=== PATIENT | female | born 1960 | race Caucasian/White ===

== ENCOUNTER 2017-01-27 14:24 | Emergency (ER) | payer BC ==
[2017-01-27 15:23] VITALS: BP 112/87
--- NOTE | 2017-01-27 15:28 | UC ---
Respiratory Complaint HPI - HPI Summary HPI Summary: 56 yo female with onset of runny nose/itchy eyes and sneezing 5 days ago after being in a room with 5 dogs Has progressed to cough which is productive and wheezing No f/c no SOB hx used MDIs with bronchitis in the past - History of Current Complaint Stated Complaint: COUGH,EAR PAIN,CONGESTION Time Seen by Provider: 01/27/17 15:21 Hx Obtained From: Patient Hx Last Menstrual Period: 2003 Onset/Duration: Gradual Onset, Lasting Days Timing: Constant Severity Initially: Mild Severity Currently: Moderate Pain Intensity: 4 Pain Scale Used: 0-10 Numeric Character: Cough: Nonproductive Aggravating Factors: Nothing Alleviating Factors: Nothing Associated Signs And Symptoms: Negative: Dyspnea, Fever, Chills, Pleuritic Chest Pain, Wheezing, Hemoptysis, Dizziness, Calf Pain, Calf Swelling, Edema, URI, Nasal Congestion, Hoarseness, Sinus Discomfort - Risk Factors Pulmonary Embolism Risk Factors: Negative Cardiac Risk Factors: Negative Pseudomonas Risk Factors: Negative Tuberculosis Risk Factors: Negative - Allergies/Home Medications Allergies/Adverse Reactions: Allergies Allergy/AdvReac Type Severity Reaction Status Date / Time Metronidazole [From Flagyl] Allergy Intermediate Rash Verified 01/27/17 15:08 Home Medications: Home Medications Naproxen Sodium [Naproxen Sodium 220 mg cap] 220 mg PO PRN 01/27/17 [History] Phenylephrine-Chlorpheniramine [Cold Head Congestion Nigh] 1 tab PO PRN [History] PMH/Surg Hx/FS Hx/Imm Hx Previously Healthy: Yes Endocrine History Of: Denies: Diabetes Cardiovascular History Of: Denies: Cardiac Disorders Respiratory History Of: Reports: COPD - Surgical History Surgical History: Yes Surgery Procedure, Year, and Place: 3 hand surgery & 2 ectopic pregnancies & 3 breast biopsies - Family History Known Family History: Positive: Hypertension, Other - mother with diverticulitis - Social History Alcohol Use: Occasionally Substance Use Type: None Smoking Status (MU): Heavy Every Day Tobacco Smoker Type: Cigarettes Amount Used/How Often: 1 PPD Length of Time of Smoking/Using Tobacco: 40 Years Have You Smoked in the Last Year: Yes Household Exposure Type: Cigarettes - Immunization History Most Recent Influenza Vaccination: NO Review of Systems Constitutional: Negative Skin: Negative Eyes: Negative ENT: Nasal Discharge Respiratory: Cough Cardiovascular: Negative Gastrointestinal: Negative Genitourinary: Negative Motor: Negative Neurovascular: Negative Musculoskeletal: Negative Neurological: Negative Psychological: Negative All Other Systems Reviewed And Are Negative: Yes Physical Exam Triage Information Reviewed: Yes Appearance: Well-Appearing, No Pain Distress, Well-Nourished Vital Signs: Initial Vital Signs Temp 98.5 F 01/27/17 15:13 Pulse 75 01/27/17 15:13 Resp 16 01/27/17 15:13 BP 112/87 01/27/17 15:13 Pulse Ox 97 01/27/17 15:13 Vital Signs Reviewed: Yes Eyes: Positive: Conjunctiva Inflamed. Negative: Discharge ENT: Positive: Hearing grossly normal, Pharynx normal, Nasal congestion, Nasal drainage. Negative: Trismus, Muffled/hoarse voice Neck: Positive: Supple, Nontender, No Lymphadenopathy Respiratory: Positive: No respiratory distress, No accessory muscle use, Wheezing Cardiovascular: Positive: RRR, No Murmur Musculoskeletal: Positive: ROM Intact, No Edema Neurological Exam: Normal Neurological: Positive: Alert Psychological Exam: Normal Skin Exam: Normal UC Diagnostic Evaluation - Laboratory O2 Sat by Pulse Oximetry: 97 - normal/not hypoxic Respiratory Course/Dx - Differential Dx/Diagnosis Provider Diagnoses: acute bronchitis with bronchospasm Discharge - Discharge Plan Condition: Stable Disposition: HOME Prescriptions: Albuterol HFA INHALER* [Ventolin HFA Inhaler*] 2 puff INH QID #1 mdi Azithromycin TAB* [Zithromax TAB*] 250 mg PO DAILY #6 tab Prednisone [Deltasone] 40 mg PO DAILY #10 tab Patient Education Materials: Acute Bronchitis (ED) Referrals: Sejal Curtis MD [Primary Care Provider] - 3 Days (if not better) Additional Instructions: recheck for new or worsening symptoms
== END 2017-01-27 15:40 | disposition home or self-care (01) ==
LOC: UCCORT 14:24
DX: J20.9 Acute bronchitis, unspecified (principal); Z88.1 Allergy status to other antibiotic agents; F17.210 Nicotine dependence, cigarettes, uncomplicated
CPT/HCPCS: 99212; G0463

== ENCOUNTER 2017-03-18 11:08 | Emergency (ER) | payer BC ==
[2017-03-18 11:53] VITALS: BP 114/55
--- NOTE | 2017-03-20 18:03 | UC ---
Throat Pain/Nasal Reyes HPI - HPI Summary HPI Summary: Patient complaining or left and right ear pain, more so in the left, sinus like symtpoms - History of Current Complaint Chief Complaint: UCRespiratory Stated Complaint: cough,left ear complaint Time Seen by Provider: 03/18/17 12:04 Hx Obtained From: Patient Hx Last Menstrual Period: 2003 ?: No Onset/Duration: Sudden Onset, Lasting Days Severity: Moderate Pain Intensity: 0 Pain Scale Used: 0-10 Numeric Associated Signs & Symptoms: Positive: Dysphagia, Sinus Discomfort, Nasal Discharge - Allergies/Home Medications Allergies/Adverse Reactions: Allergies Allergy/AdvReac Type Severity Reaction Status Date / Time Metronidazole [From Flagyl] Allergy Intermediate Rash Verified 03/18/17 11:53 PMH/Surg Hx/FS Hx/Imm Hx Previously Healthy: Yes Endocrine History Of: Denies: Diabetes Cardiovascular History Of: Denies: Cardiac Disorders Respiratory History Of: Reports: COPD - Surgical History Surgical History: Yes Surgery Procedure, Year, and Place: 3 hand surgery & 2 ectopic pregnancies & 3 breast biopsies - Family History Known Family History: Positive: Hypertension, Other - mother with diverticulitis - Social History Alcohol Use: Occasionally Substance Use Type: None Smoking Status (MU): Heavy Every Day Tobacco Smoker Type: Cigarettes Amount Used/How Often: 1 PPD Length of Time of Smoking/Using Tobacco: 40 Years Have You Smoked in the Last Year: Yes Household Exposure Type: Cigarettes - Immunization History Most Recent Influenza Vaccination: NO Review of Systems Constitutional: Negative Skin: Negative Eyes: Negative ENT: Sore Throat, Ear Ache, Nasal Discharge Respiratory: Shortness Of Breath, Cough Cardiovascular: Negative Gastrointestinal: Negative Genitourinary: Negative Motor: Negative Neurovascular: Decreased Sensation Musculoskeletal: Negative Neurological: Headache Psychological: Negative All Other Systems Reviewed And Are Negative: Yes Physical Exam Triage Information Reviewed: Yes Appearance: Well-Nourished, Ill-Appearing, Pain Distress Vital Signs: Initial Vital Signs Temp 98.4 F 03/18/17 11:50 Pulse 73 03/18/17 11:50 Resp 14 03/18/17 11:50 BP 114/55 03/18/17 11:50 Pulse Ox 97 03/18/17 11:50 Vital Signs Reviewed: Yes Eye Exam: Normal Eyes: Positive: Conjunctiva Inflamed ENT: Positive: Pharyngeal erythema, Nasal congestion, TMs normal, TM bulging, TM dull, TM red - left ear, Tonsillar swelling, Muffled/hoarse voice Dental Exam: Normal Neck exam: Normal Neck: Positive: Supple, Nontender, No Lymphadenopathy Respiratory Exam: Normal Respiratory: Positive: Chest non-tender, Lungs clear, Normal breath sounds Cardiovascular Exam: Normal Cardiovascular: Positive: RRR, No Murmur, Pulses Normal Abdominal Exam: Normal Abdomen Description: Positive: Nontender, No Organomegaly, Soft Bowel Sounds: Positive: Present Musculoskeletal Exam: Normal Neurological Exam: Normal Psychological Exam: Normal Skin Exam: Normal Throat Pain/Nasal Course/Dx - Course Course Of Treatment: hx obtained, exam performed, meds reviewed, and treated - Differential Dx/Diagnosis Differential Diagnosis/HQI/PQRI: Otitis Media, Pharyngitis, Sinusitis Provider Diagnoses: sinusitis. otitis media left ear Discharge - Discharge Plan Condition: Stable Disposition: HOME Prescriptions: Amoxicillin/Clavulanate TAB* [Augmentin TAB 875*] 875 mg PO BID #14 tab predniSONE TAB* [Deltasone TAB*] 40 mg PO DAILY #14 tab Patient Education Materials: Sinusitis (ED), Serous Otitis Media (ED), Warm Compress or Soak (ED) Referrals: Sejal Curtis MD [Primary Care Provider] - Additional Instructions: 1. take the medication as prescribed 2. Once the prednisone is done, continue with a daily zyrtec or claritin to help reduce the inflammation and help facilitate the drainage. 3. increase fluid intake and cut down on the smoking
== END 2017-03-18 12:42 | disposition home or self-care (01) ==
LOC: UCCORT 11:08
DX: H66.92 Otitis media, unspecified, left ear (principal); J01.90 Acute sinusitis, unspecified; B96.89 Other specified bacterial agents as the cause of diseases classified elsewhere
CPT/HCPCS: 99212; G0463

== ENCOUNTER 2017-03-28 08:21 | Emergency (ER) | payer BC ==
[2017-03-28 08:54] VITALS: BP 106/70
[2017-03-28] MEDS ORDERED: Albuterol 2.5 MG/3 ML NEB.SOL* (0.083%) INH ONE (09:06)
--- NOTE | 2017-03-28 09:25 | UC ---
Respiratory Complaint HPI - HPI Summary HPI Summary: cough x 10 days + chest congestion, productive cough with green sputum. has been placed on multiple abx over the past 2 weeks no fever, + chills, + sob - History of Current Complaint Chief Complaint: UCRespiratory Stated Complaint: COUGH,LIGHT HEADED,EARS Time Seen by Provider: 03/28/17 09:06 Hx Obtained From: Patient Hx Last Menstrual Period: 2003 Onset/Duration: Gradual Onset, Lasting Days - 10, Still Present Timing: Constant Severity Initially: Moderate Severity Currently: Moderate Character: Cough: Productive - green Aggravating Factors: Exertion, Deep Breaths Alleviating Factors: Nothing Associated Signs And Symptoms: Positive: Dyspnea, Chills, Wheezing, URI, Nasal Congestion. Negative: Fever, Pleuritic Chest Pain, Hemoptysis, Dizziness, Calf Pain, Calf Swelling, Edema, Hoarseness, Sinus Discomfort - Allergies/Home Medications Allergies/Adverse Reactions: Allergies Allergy/AdvReac Type Severity Reaction Status Date / Time Metronidazole [From Flagyl] Allergy Intermediate Rash Verified 03/28/17 08:44 Home Medications: Home Medications Loratadine [Claritin 10 MG CAP] 10 mg PO DAILY 03/28/17 [History Confirmed 03/28] PMH/Surg Hx/FS Hx/Imm Hx - Surgical History Surgical History: Yes Surgery Procedure, Year, and Place: 3 hand surgery & 2 ectopic pregnancies & 3 breast biopsies - Family History Known Family History: Positive: Hypertension, Other - mother with diverticulitis - Social History Alcohol Use: Occasionally Substance Use Type: None Smoking Status (MU): Heavy Every Day Tobacco Smoker Type: Cigarettes Amount Used/How Often: 1 PPD Length of Time of Smoking/Using Tobacco: 40 Years Have You Smoked in the Last Year: Yes Household Exposure Type: Cigarettes - Immunization History Most Recent Influenza Vaccination: NO Review of Systems Constitutional: Negative Skin: Negative Eyes: Negative ENT: Nasal Discharge Respiratory: Shortness Of Breath, Cough Cardiovascular: Negative Gastrointestinal: Negative All Other Systems Reviewed And Are Negative: Yes Physical Exam Triage Information Reviewed: Yes Appearance: Well-Appearing, No Pain Distress, Well-Nourished Vital Signs: Initial Vital Signs Temp 99.2 F 03/28/17 08:45 Pulse 78 03/28/17 08:45 Resp 16 03/28/17 08:45 BP 106/70 03/28/17 08:45 Pulse Ox 98 03/28/17 08:45 Vital Signs Reviewed: Yes Eyes: Positive: Conjunctiva Clear ENT: Positive: Normal ENT inspection, Hearing grossly normal, Pharynx normal Neck: Positive: Supple, Nontender, No Lymphadenopathy Respiratory: Positive: Chest non-tender, No accessory muscle use, Decreased breath sounds, Wheezing Cardiovascular: Positive: RRR, No Murmur, Pulses Normal Skin Exam: Normal UC Diagnostic Evaluation - Laboratory O2 Sat by Pulse Oximetry: 98 Respiratory Course/Dx - Differential Dx/Diagnosis Provider Diagnoses: bronchitis Discharge - Discharge Plan Condition: Stable Disposition: HOME Prescriptions: Benzonatate CAP* [Tessalon 100 MG CAP*] 100 mg PO TID PRN #21 cap PRN Reason: Cough Prednisone 20 mg PO BID #10 tab Patient Education Materials: Acute Bronchitis (ED) Referrals: Sejal Curtis MD [Primary Care Provider] - 7 Days
== END 2017-03-28 09:47 | disposition home or self-care (01) ==
LOC: UCCORT 08:21
DX: J40 Bronchitis, not specified as acute or chronic (principal); Z88.1 Allergy status to other antibiotic agents; F17.210 Nicotine dependence, cigarettes, uncomplicated
CPT/HCPCS: 99212; G0463

== ENCOUNTER 2017-05-06 12:23 | Emergency (ER) | payer BC ==
[2017-05-06 13:00] VITALS: BP 113/65
--- NOTE | 2017-05-06 13:25 | UC ---
Hand/Wrist HPI - HPI Summary HPI Summary: right hand pain , swelling, numbness x 5 days s/p laceration of the right wrist one 5 days ago , had sutures place at the hospital no having numbness and swelling of her right hand - History Of Current Complaint Chief Complaint: UCUpperExtremity Stated Complaint: LEFT FINGERS/HAND NUMBNESS - LACERATION 05/04 Time Seen by Provider: 05/06/17 13:03 Hx Obtained From: Patient Hx Last Menstrual Period: 2003 Onset/Duration: Sudden Onset, Lasting Days - 5, Still Present Severity Initially: Moderate Severity Currently: Moderate Character Of Pain: Dull, Aching Aggravating Factor(s): Movement, Lifting, Flexion Alleviating: Nothing Associated Signs And Symptoms: Positive: Swelling, Weakness, Numbness/Tingling - Allergies/Home Medications Allergies/Adverse Reactions: Allergies Allergy/AdvReac Type Severity Reaction Status Date / Time Metronidazole [From Flagyl] Allergy Intermediate Rash Verified 05/06/17 13:00 Home Medications: Home Medications NK [No Home Medications Reported] 05/06/17 [History Confirmed 05/06/17] PMH/Surg Hx/FS Hx/Imm Hx Respiratory History: Bronchitis - Surgical History Surgical History: Yes Surgery Procedure, Year, and Place: 3 hand surgery & 2 ectopic pregnancies & 3 breast biopsies - Family History Known Family History: Positive: Hypertension, Other - mother with diverticulitis - Social History Alcohol Use: Occasionally Substance Use Type: None Smoking Status (MU): Heavy Every Day Tobacco Smoker Type: Cigarettes Amount Used/How Often: 1 PPD Length of Time of Smoking/Using Tobacco: 40 Years Have You Smoked in the Last Year: Yes Household Exposure Type: Cigarettes - Immunization History Most Recent Influenza Vaccination: NO Most Recent Tetanus Shot: 05/04/17 Review of Systems Constitutional: Negative Skin: Negative Eyes: Negative ENT: Negative Respiratory: Negative All Other Systems Reviewed And Are Negative: Yes Physical Exam Triage Information Reviewed: Yes Appearance: Well-Appearing, No Pain Distress, Well-Nourished Vital Signs: Initial Vital Signs Temp 99.3 F 05/06/17 12:54 Pulse 71 05/06/17 12:54 Resp 17 05/06/17 12:54 BP 113/65 05/06/17 12:54 Pulse Ox 98 05/06/17 12:54 Vital Signs Reviewed: Yes Eyes: Positive: Conjunctiva Clear ENT: Positive: Normal ENT inspection, Hearing grossly normal, Pharynx normal Neck: Positive: Supple, Nontender, No Lymphadenopathy Respiratory: Positive: Chest non-tender, Lungs clear, Normal breath sounds Cardiovascular: Positive: RRR, No Murmur, Pulses Normal Musculoskeletal: Positive: Other: - right hand : + swelling, diffuse tenderness , good ROM Hand/Wrist Course/Dx - Differential Dx/Diagnosis Provider Diagnoses: parasthesia righ hand. right hand swelling Discharge - Discharge Plan Condition: Stable Disposition: HOME Patient Education Materials: Paresthesia (ED) Forms: *Work Release Referrals: Sejal Curtis MD [Primary Care Provider] - 5 Days Additional Instructions: laceration of the right forearm , causing swelling and inflammation of the right hand , putting pressure on the nerves causing numbness of your hand this will eventually get better when the swelling goes away , may take few weeks
== END 2017-05-06 13:33 | disposition home or self-care (01) ==
LOC: UCCORT 12:23
DX: S61.5 Open wound of wrist (principal); R20.2 Paresthesia of skin; M79.89 Other specified soft tissue disorders; X58.XXXS Exposure to other specified factors, sequela; Y92.9 Unspecified place or not applicable; Z88.1 Allergy status to other antibiotic agents; F17.210 Nicotine dependence, cigarettes, uncomplicated
CPT/HCPCS: 99211; G0463

== ENCOUNTER 2017-10-29 15:51 | Emergency (ER) | payer BC ==
[2017-10-29 17:14] VITALS: BP 115/73
--- NOTE | 2017-10-29 17:18 | UC ---
UC General HPI - HPI Summary HPI Summary: bodyaches, chilss and sweats, cough and sore throat, diarrhea for 4 days. - History of Current Complaint Chief Complaint: UCGeneralIllness Stated Complaint: FLU LIKE SYMPTOMS Time Seen by Provider: 10/29/17 16:51 Hx Obtained From: Patient Hx Last Menstrual Period: n/a Onset/Duration: Sudden Onset, Lasting Days Timing: Constant Onset Severity: Moderate Current Severity: Moderate Associated Signs & Symptoms: Positive: Cough, Fever, Headache, Wheezing - Allergy/Home Medications Allergies/Adverse Reactions: Allergies Allergy/AdvReac Type Severity Reaction Status Date / Time Metronidazole [From Flagyl] Allergy Intermediate Rash Verified 10/29/17 16:55 Home Medications: Home Medications Dextromethorphan-Acetaminophen [Coricidin Hbp Flu] 1 tab PO ONCE 10/29/17 [ History Confirmed 10/29/17] PMH/Surg Hx/FS Hx/Imm Hx Previously Healthy: Yes - Surgical History Surgical History: Yes Surgery Procedure, Year, and Place: 3 hand surgery & 2 ectopic pregnancies & 3 breast biopsies - Family History Known Family History: Positive: Hypertension, Other - mother with diverticulitis - Social History Alcohol Use: Occasionally Substance Use Type: None Smoking Status (MU): Heavy Every Day Tobacco Smoker Type: Cigarettes Amount Used/How Often: 1 PPD Length of Time of Smoking/Using Tobacco: 40 Years Have You Smoked in the Last Year: Yes Household Exposure Type: Cigarettes - Immunization History Most Recent Influenza Vaccination: NO Most Recent Tetanus Shot: 05/04/17 Review of Systems Constitutional: Fever, Chills, Fatigue Skin: Negative Eyes: Eye Redness ENT: Sore Throat Respiratory: Cough Cardiovascular: Negative Gastrointestinal: Diarrhea Genitourinary: Negative Motor: Negative Neurovascular: Negative Musculoskeletal: Arthralgia, Myalgia Neurological: Headache Psychological: Negative Is Patient Immunocompromised?: No All Other Systems Reviewed And Are Negative: Yes Physical Exam Triage Information Reviewed: Yes Appearance: Well-Nourished, Ill-Appearing, Pain Distress Vital Signs: Initial Vital Signs Temp 99.5 F 10/29/17 16:52 Pulse 88 10/29/17 16:52 Resp 16 10/29/17 16:52 BP 115/73 10/29/17 16:52 Pulse Ox 98 10/29/17 16:52 Vital Signs Reviewed: Yes Eyes: Positive: Conjunctiva Inflamed ENT: Positive: Pharyngeal erythema, TM red Dental Exam: Normal Neck exam: Normal Neck: Positive: Supple, Nontender, Enlarged Nodes @ - bilateral cervical Respiratory Exam: Normal Respiratory: Positive: Chest non-tender, No respiratory distress, Wheezing, Inspiration Cardiovascular Exam: Normal Cardiovascular: Positive: RRR, No Murmur, Pulses Normal Abdominal Exam: Normal Abdomen Description: Positive: Nontender, No Organomegaly, Soft Bowel Sounds: Positive: Present Musculoskeletal Exam: Normal Musculoskeletal: Positive: Strength Intact, ROM Intact, No Edema Neurological Exam: Normal Neurological: Positive: Alert, Muscle Tone Normal Psychological Exam: Normal Skin Exam: Normal Course/Dx - Course Course Of Treatment: hx obtained, exam performed, meds reviewed, given refill of her meclizine for ear issues, given prednisone for wheezing and cough, positivce for flu B - Differential Dx - Multi-Symptom Provider Diagnoses: influenza B. wheezing. cough. diarrhea Discharge - Discharge Plan Condition: Stable Disposition: HOME Prescriptions: Meclizine TAB* [Antivert 12.5 TAB*] 12.5 mg PO TID #60 tab Patient Education Materials: Influenza (ED) Referrals: Sejal Curtis MD [Primary Care Provider] - Additional Instructions: 1. take the prednisone as prescribed. 2. Get plenty of rest and increase fluid intake 3. Ibuprofen for muscle aches and fever 4. follow up as needed.
[2017-10-29] MEDS ORDERED: guaiFENesin/CODIEN 100MG-10MG* 5 ML UDC PO ONE (17:22)
== END 2017-10-29 17:34 | disposition home or self-care (01) ==
LOC: UCCORT 15:51
DX: J11.1 Influenza due to unidentified influenza virus with other respiratory manifestations (principal); R06.2 Wheezing; R05 Cough; R19.7 Diarrhea, unspecified; Z88.1 Allergy status to other antibiotic agents; F17.210 Nicotine dependence, cigarettes, uncomplicated
CPT/HCPCS: 87502; 99212; A9270-GY; G0463

== ENCOUNTER 2017-11-17 11:21 | Emergency (ER) | payer BC ==
[2017-11-17 12:21] VITALS: BP 130/78
--- NOTE | 2017-11-17 13:26 | RAD ---
HISTORY: Cough COMPARISONS: August 18, 2016 VIEWS: 4: Frontal dual-energy and lateral views of the chest. FINDINGS: CARDIOMEDIASTINAL SILHOUETTE: The cardiomediastinal silhouette is normal. MIRTA: The mirta are normal. PLEURA: The costophrenic angles are sharp. No pleural abnormalities are noted. LUNG PARENCHYMA: The lungs are clear. ABDOMEN: The upper abdomen is clear. There is no subphrenic gas. BONES AND SOFT TISSUES: No bone or soft tissue abnormalities are noted. OTHER: None. IMPRESSION: NO ACTIVE CARDIOPULMONARY DISEASE.
--- NOTE | 2017-11-17 13:33 | UC ---
Respiratory Complaint HPI - HPI Summary HPI Summary: 57F presents with cough for 3 weeks. She was diagnosed with the flu two weeks ago and was given a steroid but no inhaler. She states the cough has persisted and gotten worst. She admits to fever. She has history of COPD but does not have an inhaler. She admits to SOB and chest tightness. She states that normal she is given an antibiotic for her bronchitis. She denies any sore throat, abdominal pain, n/v. - History of Current Complaint Chief Complaint: UCRespiratory Stated Complaint: COUGH,CHEST CONGESTION Time Seen by Provider: 11/17/17 12:58 Hx Last Menstrual Period: n/a Pain Intensity: 0 - Allergies/Home Medications Allergies/Adverse Reactions: Allergies Allergy/AdvReac Type Severity Reaction Status Date / Time Metronidazole [From Flagyl] Allergy Intermediate Rash Verified 11/17/17 12:13 PMH/Surg Hx/FS Hx/Imm Hx Endocrine History: Other Other Endocrine History: no DM Respiratory History: COPD - Surgical History Surgical History: Yes Surgery Procedure, Year, and Place: 3 hand surgery & 2 ectopic pregnancies & 3 breast biopsies. LEFT forearm - Family History Known Family History: Positive: Hypertension, Other - mother with diverticulitis - Social History Alcohol Use: Occasionally Substance Use Type: None Smoking Status (MU): Heavy Every Day Tobacco Smoker Type: Cigarettes Amount Used/How Often: 1 PPD Length of Time of Smoking/Using Tobacco: 40 Years Have You Smoked in the Last Year: Yes Household Exposure Type: Cigarettes - Immunization History Most Recent Influenza Vaccination: NO Most Recent Tetanus Shot: 05/04/17 Review of Systems Constitutional: Fever Respiratory: Shortness Of Breath, Cough Cardiovascular: Negative All Other Systems Reviewed And Are Negative: Yes Physical Exam Triage Information Reviewed: Yes Appearance: Well-Appearing Vital Signs: Initial Vital Signs Temp 98.9 F 11/17/17 12:14 Pulse 64 11/17/17 12:14 Resp 16 11/17/17 12:14 BP 130/78 11/17/17 12:14 Pulse Ox 98 11/17/17 12:14 Vital Signs Reviewed: Yes Eyes: Positive: Conjunctiva Clear ENT: Positive: Normal ENT inspection, Pharynx normal, TMs normal Neck: Positive: Supple, Nontender, No Lymphadenopathy Respiratory: Positive: Lungs clear, Respiratory distress Cardiovascular: Positive: RRR Abdomen Description: Positive: Nontender, Soft Bowel Sounds: Positive: Present Musculoskeletal Exam: Normal Neurological Exam: Normal Psychological Exam: Normal Skin Exam: Normal UC Diagnostic Evaluation - Laboratory O2 Sat by Pulse Oximetry: 98 - Radiology Xray Interpretation: No Acute Changes Radiology Interpretation Completed By: Radiologist Respiratory Course/Dx - Course Course Of Treatment: 57F presents with cough for 3 weeks. She was diagnosed with the flu two weeks ago and was given a steroid but no inhaler. She states the cough has persisted and gotten worst. She admits to fever. She has history of COPD but does not have an inhaler. She admits to SOB and chest tightness. She states that normal she is given an antibiotic for her bronchitis. She denies any sore throat, abdominal pain, n/v. on exam decreased breath sounds heard. chest xray normal. will treat with inhaler, prednisone, and zpack. will have follow up with primary about pre-htn blood pressure. patient understand and agrees with plan. - Differential Dx/Diagnosis Differential Diagnosis/HQI/PQRI: Bronchitis, Exacerbation Of COPD, Lower Resp Infection Provider Diagnoses: bronchitis, copd, Discharge - Discharge Plan Condition: Good Disposition: HOME Prescriptions: Albuterol HFA INHALER* [Ventolin HFA Inhaler*] 1 puff INH Q4H PRN #1 mdi PRN Reason: Sob/Wheezing Azithromycin TAB* [Zithromax TAB (Z-JENNI) 250 mg #6 tabs] 2 tab PO .TODAY, THEN 1 DAILY #1 jenni predniSONE TAB* [Deltasone TAB*] 50 mg PO DAILY #5 tab Patient Education Materials: Acute Bronchitis (ED) Referrals: Sejal Curtis MD [Primary Care Provider] - Additional Instructions: Use inhaler up to two puffs every 4 hours for cough and wheezing Take steroid once a day for 5 days Take antibiotic two tablets first day and one tablet thereafter for 5 days total Take Tylenol pain every 6 hours Return to ED if develop severe shortness of breath, worsening chest pain, or any new or worsening symptoms
== END 2017-11-17 13:55 | disposition home or self-care (01) ==
LOC: UCCORT 11:21
DX: J44.9 Chronic obstructive pulmonary disease, unspecified (principal); F17.210 Nicotine dependence, cigarettes, uncomplicated
CPT/HCPCS: 71046; 99212; G0463

== ENCOUNTER 2018-05-21 10:18 | Emergency (ER) | payer BC ==
[2018-05-21 10:39] VITALS: BP 111/69
--- NOTE | 2018-05-21 11:07 | UC ---
Dizzy HPI HPI Summary: Patient is a 45-year-old female with a 3 day history of dizziness. Her symptoms worsen when she moves her head or changes position. She has a sensation of the room moving. Her sister symptoms started when she was saline. She has had nausea with her dizziness. But at once. She has had a few episodes of in her ear problems in the past. She has some mild left earache. She has some mild decreased hearing in the left ear. She denies any ringing or roaring in her ears. She denies any headache. She denies any recent URI symptoms. She desires to be treated with medicines that will not cause drowsiness. - History Of Current Complaint Chief Complaint: UCEar Stated Complaint: LEFT EAR COMPLAINT Time Seen by Provider: 05/21/18 10:36 Hx Obtained From: Patient Hx Last Menstrual Period: n/a Onset/Duration: Gradual Onset, Lasting Days Timing: Constant Severity Initially: Moderate Severity Currently: Moderate Pain Intensity: 1 Pain Scale Used: 0-10 Numeric Character: Head Spinning, Room Spinning Aggravating Factor(s): Position Change, Supine To Erect, Change In Head Position Alleviating Factor(s): Lying Down Associated Signs And Symptoms: Positive: Nausea, Vomiting - x1. Negative: Diaphoresis, Tinnitus, Chest Pain, SOB, Palpitations, Unsteady Gait, Visual Changes, Decreased Oral Intake, Change In Medication, Change In Diet, OTC Medications Related History: Similar Episode/Dx as - "inner ear infection" - Allergies/Home Medications Allergies/Adverse Reactions: Allergies Allergy/AdvReac Type Severity Reaction Status Date / Time MS Metronidazole Allergy Intermediate Rash Verified 11/17/17 12:13 [From Flagyl] PMH/Surg Hx/FS Hx/Imm Hx Previously Healthy: Yes - Surgical History Surgical History: Yes Surgery Procedure, Year, and Place: 3 hand surgery & 2 ectopic pregnancies & 4 breast biopsies. LEFT forearm - Family History Known Family History: Positive: Hypertension, Other - mother with diverticulitis - Social History Alcohol Use: Occasionally Substance Use Type: None Smoking Status (MU): Heavy Every Day Tobacco Smoker Type: Cigarettes Amount Used/How Often: 1 PPD Length of Time of Smoking/Using Tobacco: 40 Years Have You Smoked in the Last Year: Yes Household Exposure Type: Cigarettes - Immunization History Most Recent Influenza Vaccination: NO Most Recent Tetanus Shot: 05/04/17 Review of Systems Constitutional: Negative Skin: Negative Eyes: Negative ENT: Ear Ache Respiratory: Negative Cardiovascular: Negative Gastrointestinal: Negative Genitourinary: Negative Motor: Negative Neurovascular: Negative Musculoskeletal: Negative Neurological: Negative Psychological: Negative Is Patient Immunocompromised?: No All Other Systems Reviewed And Are Negative: Yes Physical Exam Triage Information Reviewed: Yes Appearance: Well-Appearing, No Pain Distress, Well-Nourished Vital Signs: Initial Vital Signs Temp 98.4 F 05/21/18 10:35 Pulse 60 05/21/18 10:35 Resp 18 05/21/18 10:35 BP 111/69 05/21/18 10:35 Pulse Ox 100 05/21/18 10:35 Vital Signs Reviewed: Yes Eyes: Positive: Conjunctiva Clear ENT: Positive: Hearing grossly normal. Negative: Nasal congestion, Nasal drainage, TMs normal - slight bulging left TM, Tonsillar swelling, Tonsillar exudate, Trismus, Muffled voice, Hoarse voice, Dental tenderness, Sinus tenderness, Uvula midline Neck: Positive: Supple, Nontender, No Lymphadenopathy Respiratory: Positive: Lungs clear, Normal breath sounds, No respiratory distress, No accessory muscle use Cardiovascular: Positive: RRR, No Murmur Musculoskeletal: Positive: ROM Intact, No Edema Neurological: Positive: Alert Psychological Exam: Normal Skin Exam: Normal Dizzy Course/Dx - Differential Dx/Diagnosis Provider Diagnoses: vertigo. serous otitis media Discharge - Sign-Out/Discharge Documenting (check all that apply): Patient Departure - Discharge Plan Condition: Stable Disposition: HOME Prescriptions: predniSONE [Deltasone 20 MG TAB] 40 mg PO DAILY #10 tab Scopolamine 1.5 mg* PATCH* [Transderm-Scop 1.5 mg Patch*] 1 patch TRANSDERM Q72H PRN #4 patch PRN Reason: Dizziness Patient Education Materials: Labyrinthitis (ED) Referrals: Sejal Curtis MD [Primary Care Provider] - 1 Week (if not better) - Billing Disposition and Condition Condition: STABLE Disposition: Home
== END 2018-05-21 11:07 | disposition home or self-care (01) ==
LOC: UCCORT 10:18
DX: H65.92 Unspecified nonsuppurative otitis media, left ear (principal); R42 Dizziness and giddiness; R11.0 Nausea; F17.210 Nicotine dependence, cigarettes, uncomplicated; Z88.8 Allergy status to other drugs, medicaments and biological substances
CPT/HCPCS: 99212; G0463